=== PATIENT | male | born 1965 | race Caucasian/White ===

== ENCOUNTER 2017-05-24 01:12 | Inpatient (IN) | payer BC ==
[~2017-05-24] VITALS: Ht 188 cm; Wt 90.3 kg
[2017-05-24] VITALS (8 sets, daily range): BP systolic 118–142; BP diastolic 68–75
[2017-05-24 01:33] LABS: BASOPHIL COUNT 0.1 K/uL (0-0.1); EOSINOPHIL (%) 4.2 % (0-5); EOSINOPHIL COUNT 0.4 K/uL (0-0.3); HEMOGLOBIN 13.7 G/DL (12.5-16.6); IMMATURE GRANULOCYTE (%) 0.3 % (0.0-0.7); LYMPHOCYTE (%) 35.1 % (15-42); LYMPHOCYTE COUNT 3.2 K/uL (1.0-2.8); MCH 30.6 PG (29.0-34.0); MCHC 33.4 G/DL (30.0-36.0); MCV 91.7 FL (86-99); MONOCYTE (%) 7.8 % (3-12); MONOCYTE COUNT 0.7 K/uL (0-0.8); NEUTROPHIL (%) 51.6 % (45-76); NEUTROPHIL COUNT 4.8 K/uL (1.8-6.4); PLATELET COUNT 270 K/uL (156-360); RBC DIS.WIDTH-CV 11.8 % (11.8-14.6); RBC DIS.WIDTH-SD 39.5 % (39-53); RED BLOOD COUNT 4.47 M/uL (4.00-5.50); WHITE BLOOD COUNT 9.2 K/uL (4.1-10.2)
[2017-05-24 01:41] LABS: AMYLASE 112 IU/L (1-118); CHLORIDE 101 mEq/L (99-109); POTASSIUM 3.2 mEq/L (3.7-5.4); SODIUM 141 mEq/L (136-147)
[2017-05-24 01:43] LABS: GLUCOSE 132 mg/dL (70-99)
[2017-05-24 01:46] LABS: SERUM ETHYL ALCOHOL < 10 mg/dL
[2017-05-24 01:47] LABS: CREATININE 1.3 mg/dL (0.6-1.3); GFR ESTIMATE (CALCULATED) > 59 mL/min/ (58.99-99999)
[2017-05-24 01:48] LABS: UREA NITROGEN (BUN) 27 mg/dL (9-23)
[2017-05-24 01:50] LABS: LIPASE 33 U/L (1.0-51.0)
[2017-05-24 05:16] LABS: APPEARANCE ND ((CLEAR)); COLOR ND ((YELLOW)); LEUKOCYTES ND; NITRITE ND; PH, URINE ND (5-8); SPECIFIC GRAVITY ND (1.000-1.030)
[2017-05-24 05:17] LABS: GLUCOSE (STRIP) ND; KETONES ND; PROTEIN (STRIP) ND
[2017-05-24 05:18] LABS: BILIRUBIN ND; BLOOD ND; UROBILINOGEN ND MG/DL (0.2-1.0)
[2017-05-24 05:20] LABS: UCUL ADDED? ND
[2017-05-24 05:21] LABS: AMPHETAMINE ND (500 ng/mL); COCAINE ND (150 ng/mL); METHAMPHETAMINE ND (500 ng/mL); OPIATES (MORPHINE) ND (100 ng/mL); PHENCYCLIDINE ND (25 ng/mL); THC CANNABINOIDS ND (50 ng/mL)
[2017-05-24 05:22] LABS: BARBITURATES ND (200 ng/mL); BENZODIAZEPINES ND (150 ng/mL); BUPRENORPHINE ND (10 ng/mL); METHADONE ND (200 ng/mL); OXYCODONE ND (100 ng/mL); PROPOXYPHENE ND (300 ng/mL); TRICYCLIC ANTIDEPRESSANTS ND (300 ng/mL)
[2017-05-24 08:32] LABS: HEMATOCRIT 37.1 % (38.0-50.0); HEMOGLOBIN 12.3 G/DL (12.5-16.6); MCH 29.9 PG (29.0-34.0); MCHC 33.2 G/DL (30.0-36.0); MCV 90.3 FL (86-99); PLATELET COUNT 206 K/uL (156-360); RBC DIS.WIDTH-CV 11.8 % (11.8-14.6); RBC DIS.WIDTH-SD 38.6 % (39-53); RED BLOOD COUNT 4.11 M/uL (4.00-5.50); WHITE BLOOD COUNT 10.7 K/uL (4.1-10.2)
[2017-05-24 09:00] LABS: CHLORIDE 106 MEQ/L (99-109); GFR ESTIMATE (CALCULATED) > 59 mL/min/ (58.99-99999); GLUCOSE 133 mg/dL (70-99); SODIUM 138 MEQ/L (136-147); UREA NITROGEN (BUN) 24 mg/dL (9-23)
[2017-05-24 09:05] LABS: POTASSIUM 4.2 MEQ/L (3.7-5.4)
[2017-05-24] MEDS ORDERED: DAILY VALUE1 EACH PO (12:52)
[2017-05-24] MEDS ORDERED: GLUCOSAMINE &1 EAC1 PO (12:52)
[2017-05-24] MEDS ORDERED: ALEVE220 MG PO (12:52)
[2017-05-24] MEDS ORDERED: SAW PALMETTO160 MG PO (12:53)
[2017-05-25 03:49] VITALS: BP 127/73
[2017-05-25 05:37] LABS: BASOPHIL (%) 0.5 % (0-1); EOSINOPHIL (%) 3.6 % (0-5); EOSINOPHIL COUNT 0.2 K/uL (0-0.3); HEMATOCRIT 35.8 % (38.0-50.0); HEMOGLOBIN 11.6 G/DL (12.5-16.6); IMMATURE GRANULOCYTE (%) 0.3 % (0.0-0.7); LYMPHOCYTE COUNT 1.4 K/uL (1.0-2.8); MCH 29.4 PG (29.0-34.0); MCHC 32.4 G/DL (30.0-36.0); MCV 90.9 FL (86-99); MONOCYTE COUNT 0.6 K/uL (0-0.8); NEUTROPHIL (%) 62.6 % (45-76); NEUTROPHIL COUNT 3.8 K/uL (1.8-6.4); PLATELET COUNT 192 K/uL (156-360); RBC DIS.WIDTH-CV 11.9 % (11.8-14.6); RBC DIS.WIDTH-SD 39.8 % (39-53); RED BLOOD COUNT 3.94 M/uL (4.00-5.50); WHITE BLOOD COUNT 6.1 K/uL (4.1-10.2)
[2017-05-25 05:50] LABS: ALBUMIN 3.5 G/DL (3.2-4.8); ALKALINE PHOSPHATASE 48 IU/L (3-129); ALT (GPT) 30 IU/L (3-49); AST (GOT) 31 IU/L (2-34); CHLORIDE 106 MEQ/L (99-109); GFR ESTIMATE (CALCULATED) > 59 mL/min/ (58.99-99999); POTASSIUM 3.7 MEQ/L (3.7-5.4); SODIUM 140 MEQ/L (136-147); TOTAL BILIRUBIN 0.5 MG/DL (0.0-1.0); TOTAL PROTEIN 5.7 G/DL (6.4-8.3); UREA NITROGEN (BUN) 14 mg/dL (9-23)
[2017-05-25 05:54] LABS: GLUCOSE 87 mg/dL (70-99)
[2017-05-25 08:13] VITALS: BP 116/69
[2017-05-25 12:05] VITALS: BP 130/60
[2017-05-25 16:52] VITALS: BP 153/72
[2017-05-26 00:51] VITALS: BP 150/70
[2017-05-26 05:07] LABS: CHLORIDE 104 mEq/L (99-109); POTASSIUM 4.1 mEq/L (3.7-5.4); SODIUM 141 mEq/L (136-147)
[2017-05-26 05:08] LABS: GLUCOSE 84 mg/dL (70-99)
[2017-05-26 05:09] LABS: BASOPHIL (%) 0.5 % (0-1); EOSINOPHIL (%) 4.3 % (0-5); EOSINOPHIL COUNT 0.3 K/uL (0-0.3); HEMATOCRIT 37.2 % (38.0-50.0); HEMOGLOBIN 12.4 G/DL (12.5-16.6); IMMATURE GRANULOCYTE (%) 0.2 % (0.0-0.7); LYMPHOCYTE (%) 22.4 % (15-42); LYMPHOCYTE COUNT 1.4 K/uL (1.0-2.8); MCH 30.5 PG (29.0-34.0); MCHC 33.3 G/DL (30.0-36.0); MCV 91.6 FL (86-99); MONOCYTE (%) 11.1 % (3-12); MONOCYTE COUNT 0.7 K/uL (0-0.8); NEUTROPHIL (%) 61.5 % (45-76); NEUTROPHIL COUNT 3.8 K/uL (1.8-6.4); PLATELET COUNT 203 K/uL (156-360); RBC DIS.WIDTH-CV 11.9 % (11.8-14.6); RBC DIS.WIDTH-SD 40.3 % (39-53); RED BLOOD COUNT 4.06 M/uL (4.00-5.50); WHITE BLOOD COUNT 6.2 K/uL (4.1-10.2)
[2017-05-26 05:12] LABS: GFR ESTIMATE (CALCULATED) > 59 mL/min/ (58.99-99999)
[2017-05-26 05:13] LABS: UREA NITROGEN (BUN) 17 mg/dL (9-23)
[2017-05-26 07:29] VITALS: BP 126/66
[2017-05-26] MEDS ORDERED: ROXICODONE5 MG PO (12:39)
[2017-05-26] MEDS ORDERED: COLACE100 MG PO (12:39)
[2017-05-26 15:26] VITALS: BP 127/76
== END 2017-05-26 16:34 | disposition home health service (06) | DRG 605 ==
LOC: TRA 01:12 → 4EAST 02:46 → 3EAST 02:46 → EDOF 02:46 → 3EAST 02:46 → ENRESERV 02:49 → 4EAST 04:04 → ENRESERV 14:21 → 3EAST 17:42
PROVIDERS: Emergency Medicine; Physician Assistant; Student in an Organized Health Care Education/Training Program
DX: S41.131A Puncture wound without foreign body of right upper arm, initial encounter (principal); S44.01XA Injury of ulnar nerve at upper arm level, right arm, initial encounter; X94.0XXA Assault by shotgun, initial encounter; S06.0X0A Concussion without loss of consciousness, initial encounter; S00.81XA Abrasion of other part of head, initial encounter; S00.83XA Contusion of other part of head, initial encounter; Y04.0XXA Assault by unarmed brawl or fight, initial encounter; E87.6 Hypokalemia; E87.2 Acidosis; M19.90 Unspecified osteoarthritis, unspecified site; Z96.651 Presence of right artificial knee joint
CPT/HCPCS: 70450; 70486; 71045; 71260; 73060; 80047; 80048; 80048 91; 80053; 81003; 82150; 83605; 83690; 84999; 85025; 85027; 86850; 86900; 86901; 86920; 90832; 93005; 93931; 94799; G0480; J0690; J3010; J3480; S0028